=== PATIENT | male | born 1965 | race Caucasian/White ===

== ENCOUNTER 2021-10-28 22:28 | Observation (INO) | payer BC ==
[~2021-10-28] VITALS: Ht 185.4 cm; Wt 89.6 kg
[~2021-10-28 22:28] MED LIST: BACL10TA PO; DICY20TA3 PO; OMEP20CA12 PO
[2021-10-28] MEDS ORDERED: ONDANSETRON 4MG INJ IVP ONE (23:00)
[2021-10-28] MEDS ORDERED: PANTOPRAZOLE 40 MG/VIAL IVP ONE (23:00)
[2021-10-28] MEDS ORDERED: MORPHINE 4 MG SYG IVP ONE (23:00)
[2021-10-28] MEDS ORDERED: 0.9%NACL 1000ML 1,000 ML IV ONE (23:00)
[2021-10-28 23:08] LABS: BASOPHILS % (AUTO) 0.3 % (0.0-5.0); EOSINOPHILS % (AUTO) 0.5 % (0.0-8.0); HEMATOCRIT 44.9 % (42-54); LYMPHOCYTES % (AUTO) 2.2 % (21.0-51.0); MEAN CORPUSCULAR HEMOGLOBIN 21.6 pg (27.0-33.0); MEAN CORPUSCULAR HGB CONC 29.8 g/dL (32.0-36.0); MEAN CORPUSCULAR VOLUME 72.3 fL (79-99); NEUTROPHILS % (AUTO) 90.5 % (40.0-77.0); PLATELET COUNT (AUTO) 549 K/uL (130-400); RED BLOOD CELL COUNT(AUTO) 6.21 MIL/uL (4.50-6.20); RED CELL DISTRIBUTION WIDTH 18.5 % (11.0-15.5)
[2021-10-28 23:25] LABS: POTASSIUM 3.9 mmol/L (3.5-5.1)
[2021-10-28 23:28] LABS: ALBUMIN 3.9 g/dL (3.5-5.0); BILIRUBIN,TOTAL 0.6 mg/dL (0.2-1.0); TOTAL PROTEIN, SERUM 8.1 g/dL (6.0-8.3)
[2021-10-29] MEDS ORDERED: IOHEXOL 350 MG/ML 100ML INFUS..BTL IV ONE (00:09)
[2021-10-29] MEDS ORDERED: 0.9%NACL 1000ML 1,000 ML IV ONE (05:00)
[2021-10-29] MEDS ORDERED: ZOSYN 3.375GM +NS 50ML IV SCH (05:00)
[2021-10-29] MEDS ORDERED: ONDANSETRON 4MG INJ ONE (05:38)
[2021-10-29] MEDS ORDERED: ACETAMINOPHEN 325 MG TAB PO PRN ×2 (09:30)
[2021-10-29] MEDS ORDERED: ONDANSETRON 4MG INJ IV PRN (09:30)
[2021-10-29] MEDS: 0.9%NACL 1000ML 1,000 ML IV SCH ×2 (09:57→14:59)
[2021-10-29 10:00] LABS: BASOPHILS % (AUTO) 0.3 % (0.0-5.0); EOSINOPHILS % (AUTO) 1.2 % (0.0-8.0); HEMATOCRIT 36.8 % (42-54); LYMPHOCYTES % (AUTO) 11.4 % (21.0-51.0); MEAN CORPUSCULAR HEMOGLOBIN 21.5 pg (27.0-33.0); MEAN CORPUSCULAR HGB CONC 29.6 g/dL (32.0-36.0); MEAN CORPUSCULAR VOLUME 72.7 fL (79-99); MONOCYTES % (AUTO) 7.8 % (3.0-13.0); PLATELET COUNT (AUTO) 457 K/uL (130-400); RED BLOOD CELL COUNT(AUTO) 5.06 MIL/uL (4.50-6.20); RED CELL DISTRIBUTION WIDTH 17.3 % (11.0-15.5); WHITE BLOOD COUNT (AUTO) 11.8 K/uL (4.8-10.8)
[2021-10-29] MEDS ORDERED: OXYCODONE HCL 5 MG TAB PO PRN ×2 (10:00)
[2021-10-29 10:11] LABS: ALBUMIN 3.2 g/dL (3.5-5.0); BILIRUBIN,TOTAL 0.7 mg/dL (0.2-1.0); CREATININE 1.1 mg/dL (0.5-1.5); MAGNESIUM 1.8 mg/dL (1.80-2.40); PHOSPHORUS 3.5 mg/dL (2.5-4.9); TOTAL PROTEIN, SERUM 6.7 g/dL (6.0-8.3)
[2021-10-29 11:10] LABS: APPEARANCE,URINE Clear (CLEAR); BILIRUBIN,URINE Negative (NEGATIVE); COLOR,URINE Yellow (YELLOW); GLUCOSE, URINE (UA) Negative (NEGATIVE); KETONES,URINE Trace mg/dL (NEGATIVE); LEUKOCYTE ESTERASE ,URINE Negative (NEGATIVE); NITRATE,URINE Negative (NEGATIVE); OCCULT BLOOD,URINE Negative (NEGATIVE); PROTEIN,URINE Trace mg/dL (NEGATIVE)
[2021-10-29 12:18] LABS: AMPHET/METH SCREEN,URINE NEGATIVE (NEGATIVE); BARBITURATE SCREEN, URINE NEGATIVE (NEGATIVE); BENZODIAZEPINES SCREEN,URINE NEGATIVE (NEGATIVE); CANNABINOID SCREEN,URINE NEGATIVE (NEGATIVE); COCAINE SCREEN,URINE NEGATIVE (NEGATIVE); OPIATE SCREEN,URINE POSITIVE (NEGATIVE); PHENCYCLIDINE SCREEN,URINE NEGATIVE (NEGATIVE)
[2021-10-29] MEDS: ZOSYN 3.375GM+NS 50ML 50 ML IV SCH ×2 (14:59→23:12)
[2021-10-29] MEDS ORDERED: LISI10TA24 PO (19:58)
[2021-10-29] MEDS: BACLOFEN 10 MG TABLET PO SCH (21:36)
[2021-10-29 22:50] VITALS: BP 138/86
[2021-10-30 04:00] VITALS: BP 113/71
[2021-10-30 05:11] LABS: BASOPHILS % (AUTO) 0.4 % (0.0-5.0); EOSINOPHILS % (AUTO) 3.4 % (0.0-8.0); HEMATOCRIT 31.5 % (42-54); LYMPHOCYTES % (AUTO) 21.2 % (21.0-51.0); MEAN CORPUSCULAR HEMOGLOBIN 21.1 pg (27.0-33.0); MEAN CORPUSCULAR HGB CONC 28.9 g/dL (32.0-36.0); MEAN CORPUSCULAR VOLUME 72.9 fL (79-99); MONOCYTES % (AUTO) 8.3 % (3.0-13.0); NEUTROPHILS % (AUTO) 66.4 % (40.0-77.0); PLATELET COUNT (AUTO) 368 K/uL (130-400); RED BLOOD CELL COUNT(AUTO) 4.32 MIL/uL (4.50-6.20); RED CELL DISTRIBUTION WIDTH 17.2 % (11.0-15.5); WHITE BLOOD COUNT (AUTO) 7.9 K/uL (4.8-10.8)
[2021-10-30 05:25] LABS: ALBUMIN 2.9 g/dL (3.5-5.0); BILIRUBIN,TOTAL 0.6 mg/dL (0.2-1.0); CREATININE 1.1 mg/dL (0.5-1.5); POTASSIUM 3.8 mmol/L (3.5-5.1); TOTAL PROTEIN, SERUM 5.9 g/dL (6.0-8.3)
[2021-10-30] MEDS: ZOSYN 3.375GM+NS 50ML 50 ML IV SCH (05:54)
[2021-10-30 08:00] VITALS: BP 113/64
[2021-10-30] MEDS ORDERED: LEVO500T90 PO (08:46)
[2021-10-30] MEDS ORDERED: BACL5TAB PO (08:46)
[2021-10-30] MEDS: BACLOFEN 10 MG TABLET PO SCH (09:08)
[2021-10-30 12:00] VITALS: BP 148/88
== END 2021-10-30 11:50 | disposition home or self-care (01) ==
LOC: EDH 22:28 → EDHIP 10-29 09:27 → 3BH 10-29 22:28
PROVIDERS: ADMIT Internal Medicine; ATTEND Internal Medicine
DX: C18.9 Malignant neoplasm of colon, unspecified (principal); K52.9 Noninfective gastroenteritis and colitis, unspecified; R11.2 Nausea with vomiting, unspecified; D72.829 Elevated white blood cell count, unspecified; E88.89 Other specified metabolic disorders; G80.9 Cerebral palsy, unspecified; I10 Essential (primary) hypertension; M43.22 Fusion of spine, cervical region; E11.9 Type 2 diabetes mellitus without complications; E86.0 Dehydration; G30.9 Alzheimer's disease, unspecified; F02.80 Dementia in other diseases classified elsewhere, unspecified severity, without behavioral disturbance, psychotic disturbance, mood disturbance, and anxiety; I63.9 Cerebral infarction, unspecified; J44.9 Chronic obstructive pulmonary disease, unspecified; K59.00 Constipation, unspecified; K82.8 Other specified diseases of gallbladder; M79.89 Other specified soft tissue disorders; Z85.038 Personal history of other malignant neoplasm of large intestine; Z98.1 Arthrodesis status; Z79.899 Other long term (current) drug therapy; Z98.890 Other specified postprocedural states
CPT/HCPCS: 36415 ×3; 74177; 80053 ×3; 80305; 81003; 82105; 82378; 82948; 83036; 83605; 83690; 83735; 84100; 84145; 84484; 85025 ×3; 86316; 86850; 86900; 86901; 87040 ×4; 93005; 93970; 96361 ×2; 96365; 96366 ×2; 96375; 96376; 99285; C9113; G0378 ×26; J2270; J2405 ×2; J2543 ×4; J7030 ×3; Q9967